=== PATIENT | female | born 1955 | race Caucasian/White ===

== ENCOUNTER 2024-10-14 13:59 | Emergency (ER) | payer MEDICARE, BC ==
[2024-10-14] MEDS ORDERED: Sodium Chloride 0.9% 10 ML Syringe FLUSH PRN (14:17)
[2024-10-14] MEDS: Albuterol/Ipratropium 3.0-0.5 MG/3 ML Neb Soln NEB ONE (14:52)
[2024-10-14] MEDS: Albuterol/Ipratropium 3.0-0.5 MG/3 ML Neb Soln ONE (14:53)
[2024-10-14] MEDS: Acetaminophen 325 MG Tab PO ONE (14:59)
[2024-10-14 15:00] LABS: BASOPHILS ABSOLUTE AUTO 0.04 K/uL (0.00-0.20); BASOPHILS PERCENT AUTO 0.6 % (0.0-2.0); HEMATOCRIT 41.2 % (34.0-46.0); HEMOGLOBIN 13.7 g/dL (11.7-15.5); IMMATURE GRAN ABSOLUTE AUTO 0.01 10^3/uL (0.00-0.04); IMMATURE GRAN PERCENT AUTO 0.2 % (0.0-0.4); LYMPHOCYTES ABSOLUTE AUTO 1.09 K/uL (0.50-3.50); LYMPHOCYTES PERCENT AUTO 17.2 % (10.0-50.0); MEAN CORPUSCULAR HEMOGLOBIN 27.7 pg (28.2-33.3); MEAN CORPUSCULAR HGB CONC 33.3 g/dL (31.7-36.0); MEAN CORPUSCULAR VOLUME 83.2 fL (84.0-98.0); MONOCYTES ABSOLUTE AUTO 0.72 K/uL (0.00-1.00); MONOCYTES PERCENT AUTO 11.3 % (2.0-14.0); NEUTROPHILS ABSOLUTE AUTO 4.49 K/uL (1.40-7.00); NEUTROPHILS PERCENT AUTO 70.7 % (45.0-80.0); PLATELET COUNT,PLT 235 K/uL (150-350); RED BLOOD CELL COUNT 4.95 M/uL (3.77-5.09); RED CELL DISTRIBUTION WIDTH 13.5 % (11.2-14.1); WHITE BLOOD CELL COUNT,WBC 6.4 K/uL (4.0-10.2)
[2024-10-14] MEDS: Ondansetron 4 MG Tab.DIS PO ONE (15:14)
[2024-10-14] MEDS: Ondansetron 4 MG Tab.DIS ONE (15:16)
[2024-10-14 15:31] LABS: PROTHROMBIN TIME 10.3 SEC (9.0-11.1)
[2024-10-14 15:41] LABS: ALBUMIN 3.8 g/dL (3.4-5.0); BILIRUBIN TOTAL 0.5 mg/dL (0.2-1.0); CALCIUM 8.9 mg/dL (8.5-10.1); CARBON DIOXIDE,CO2 25.7 mmol/L (21.0-32.0); CREATININE 0.95 mg/dL (0.51-1.17); EST CRCL DRUG DOSING (CG) 57.97 mL/min; MAGNESIUM 2.1 mg/dL (1.8-2.4); PROTEIN TOTAL,TP 8.1 g/dL (6.4-8.2)
[2024-10-14 15:46] LABS: ANION GAP 16.3 meq/L (7-15)
[2024-10-14] MEDS: Potassium Bicarbonate/Cit Ac 20 MEQ Effervescent Tab PO ONE ×2 (16:00→16:45)
[2024-10-14] MEDS: Potassium Bicarbonate/Cit Ac 20 MEQ Effervescent Tab ONE (16:03)
== END 2024-10-14 18:25 | disposition home or self-care (01) ==
LOC: LL.ED 13:59
DX: J10.1 Influenza due to other identified influenza virus with other respiratory manifestations (principal); E87.6 Hypokalemia; Z88.2 Allergy status to sulfonamides
CPT/HCPCS: 36415; 71046; 80053; 83735; 83880; 84132; 84484; 85025; 85610; 87428; 93005; 94640; 99285; A9270; 93010; 99284; J7620-GY

== ENCOUNTER 2025-07-19 00:10 | Emergency (ER) | payer MEDICARE, BC ==
[2025-07-19 01:28] VITALS: BP 158/83; PULSE 92
== END 2025-07-19 01:15 | disposition home or self-care (01) ==
LOC: LL.ED 00:10
DX: L03.211 Cellulitis of face (principal); I10 Essential (primary) hypertension; E78.00 Pure hypercholesterolemia, unspecified; Z88.2 Allergy status to sulfonamides; Z79.899 Other long term (current) drug therapy
CPT/HCPCS: 10060; 96372; 99283-25; J0696; J2003